=== PATIENT | male | born 1950 | race Caucasian/White ===

== ENCOUNTER 2019-10-11 12:54 | Inpatient (IN) | payer OTHER ==
[~2019-10-11] VITALS: Ht 165.1 cm; Wt 72.6 kg
[2019-10-11] MEDS ORDERED: DOXAZOSIN MESYLA2 MG PO (13:07)
[2019-10-11] MEDS ORDERED: FORTAMET500 MG PO (13:07)
[2019-10-11] MEDS ORDERED: COZAAR50 MG PO (13:08)
--- NOTE | 2019-10-11 13:09 | NUR ---
SE RECIBE PTE MASCULINO, ALERTA Y ORIENTADO X3, REFIERE SANGRADO RECTAL PIÑA OSCURO CON POCOS COAGULOS DESDE ESTA MADRUGADA.
--- NOTE | 2019-10-11 14:21 | NUR ---
EVALUADO POR EL SE ORIENTA SOBRE TRATAMIENTO MEDICO POR LE EXTRAE MUESTRAS DE BALA Y SE ENVIAN AL LABORATORIO. SE MANTIENE EN OBSERVACION.
--- NOTE | 2019-10-11 23:48 | NUR ---
PACIENTE ALERTA Y ORIENTADO X3. SE ORIENTA SOBRE TX A RECIBIR Y REFIERE ENTENDER. SE ADMINISTRA MEDICAMENTO RONALD ORDEN MEDICA. IV FLUID PATENTE Y HSERIE DE EDEMA Y ERITEMA. SE MANTIENE BAJO OBSERVACION POR CAMBIOS SIGNIFICATIVOS EN BRAVO CON BARANDAS ELEVADAS.
== END 2019-10-16 12:02 | disposition home or self-care (01) | DRG 395 ==
LOC: ER 12:54 → SEC-K 10-12 01:04 → SURH 10-12 01:04
PROVIDERS: ADMIT Surgery
PROC: B246ZZZ Ultrasonography of Right and Left Heart (ICD-10-PCS; principal; 2019-10-12)
PROC: 3E0F7GC Introduction of Other Therapeutic Substance into Respiratory Tract, Via Natural or Artificial Opening (ICD-10-PCS; 2019-10-12)
DX: K40.30 Unilateral inguinal hernia, with obstruction, without gangrene, not specified as recurrent (principal); J44.9 Chronic obstructive pulmonary disease, unspecified; E11.65 Type 2 diabetes mellitus with hyperglycemia; K52.89 Other specified noninfective gastroenteritis and colitis; Z87.891 Personal history of nicotine dependence; I73.89 Other specified peripheral vascular diseases; I10 Essential (primary) hypertension

== ENCOUNTER 2019-11-19 02:05 | Emergency (ER) | payer OTHER ==
[~2019-11-19] VITALS: Ht 162.6 cm; Wt 67.6 kg
[~2019-11-19 02:05] MED LIST: COZAAR50 MG PO; DOXAZOSIN MESYLA2 MG PO; FORTAMET500 MG PO
== END 2019-11-19 14:06 | disposition home or self-care (01) ==
LOC: ER 02:05
DX: E11.65 Type 2 diabetes mellitus with hyperglycemia (principal); R42 Dizziness and giddiness